=== PATIENT | male | born 2000 | race African-American/Black ===

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

== ENCOUNTER 2023-07-23 00:16 | Emergency (ER) | payer OTHER, SELFPAY ==
--- NOTE | 2023-07-23 01:26 | ER ---
Nurse's Notes [facility] Name: Vimal Ledezma Age: 22 yrs Sex: Male : 2000 Arrival Date: 07/23/2023 Time: 00:16 Bed 6 Private MD: Diagnosis: Noninfective gastroenteritis and colitis, unspecified Presentation: 07/23 00:26 Chief complaint: Patient states: fever, vomiting, overall "not feeling well" for a few as6 days. pt reports several family members are sick also. Coronavirus screen: At this time, the client does not indicate any symptoms associated with coronavirus-19. Ebola Screen: No symptoms or risks identified at this time. Initial Sepsis Screen: Does the patient meet any 2 criteria? No. Patient's initial sepsis screen is negative. Does the patient have a suspected source of infection? No. Patient's initial sepsis screen is negative. Risk Assessment: Do you want to hurt yourself or someone else? Patient reports no desire to harm self or others. Onset of symptoms was July 20, 2023. 00:26 Method Of Arrival: Ambulatory as6 00:26 Acuity: DUC 4 as6 Historical: - Allergies: 00:27 No Known Allergies; as6 - Home Meds: 00:27 None [Active]; as6 - PMHx: 00:27 None; as6 - PSHx: 00:27 None; as6 - Immunization history:: Client reports having NOT received the Covid vaccine. - Social history:: Smoking status: Reported history of juuling and/or vaping. Screenin:38 [facility] ED Fall Risk Assessment (Adult) History of falling in the last 3 months, jb4 including since admission No falls in past 3 months (0 pts) Confusion or Disorientation No (0 pts) Score/Fall Risk Level 0 - 2 = Low Risk Oriented to surroundings, Maintained a safe environment. Abuse screen: Denies threats or abuse. Nutritional screening: No deficits noted. Tuberculosis screening: No symptoms or risk factors identified. Assessment: 00:20 General: Appears comfortable, Behavior is calm, cooperative. Pain: Complains of pain in ha1 headache Pain does not radiate. Pain currently is 6 out of 10 on a pain scale. Quality of pain is described as pressure. Neuro: Level of Consciousness is awake, alert, obeys commands, Oriented to person, place, time, situation. Cardiovascular: Patient's skin is warm and dry. Respiratory: Airway is patent Respiratory effort is even, unlabored, Respiratory pattern is regular, symmetrical. 01:25 Reassessment: Patient appears in no apparent distress at this time. Patient and/or jb4 family updated on plan of care and expected duration. Pain level reassessed. Patient is alert, oriented x 3, equal unlabored respirations, skin warm/dry/pink. Vital Signs: 00:28 BP 135 / 81; Pulse 89; Resp 18 S; Temp 98.4(O); Pulse Ox 100% on R/A; Weight 63.5 kg as6 (R); Height 5 ft. 9 in. (R); Pain 3/10; 01:25 BP 134 / 75; Pulse 92; Resp 16; Pulse Ox 100% on R/A; jb4 00:28 Body Mass Index 20.67 (63.50 kg, 175.26 cm) as6 00:28 Pain Scale: Adult as6 ED Course: 00:20 Patient arrived in ED. ag3 00:20 Anita Ken PA-C is PHCP. sb4 00:20 Gregor Villarreal MD is Attending Physician. sb4 00:27 Triage completed. as6 00:29 Arm band placed on. as6 01:25 Murtaza Carter, RN is Primary Nurse. jb4 01:38 Patient has correct armband on for positive identification. Bed in low position. Call jb4 light in reach. Side rails up X 1. 01:38 No provider procedures requiring assistance completed. Patient did not have IV access jb4 during this emergency room visit. Administered Medications: No medications were administered Outcome: 01:26 Discharge ordered by . sb4 01:38 Discharged to home ambulatory, jb4 01:38 Condition: stable 01:38 Discharge instructions given to patient, Instructed on discharge instructions, follow up and referral plans. medication usage, Demonstrated understanding of instructions, follow-up care, medications, Prescriptions given X 1, 01:40 Patient left the ED. jb4 Signatures: Murtaza Carter, RN RN jb4 Shante Alejandra ag3 Zenon Torres RN RN as6 Anna Rodriguez RN RN ha1 Anita Ken PA-C PA-C sb4
--- NOTE | 2023-07-23 01:26 | EDPHYS ---
Physician Documentation [facility] Name: Vimal Ledezma Age: 22 yrs Sex: Male : 2000 Arrival Date: 07/23/2023 Time: 00:16 Bed 6 Private MD: ED Physician Gregor Villarreal HPI: 07/23 00:31 This 22 yrs old Black Male presents to ER via Ambulatory with complaints of Fever, sb4 Vomiting. 00:31 The patient reports fever, not measured (subjective), with an emergency department sb4 temperature of 98.4 degrees Fahrenheit. Onset: The symptoms/episode began/occurred 2 day(s) ago. Modifying factors: The patient has had contact with sick. Associated signs and symptoms: Pertinent positives: decreased appetite, nausea, vomiting. Severity of symptoms: At their worst the symptoms were mild in the emergency department the symptoms have improved moderately. The patient has not experienced similar symptoms in the past. The patient has not recently seen a physician. Historical: - Allergies: 00:27 No Known Allergies; as6 - Home Meds: 00:27 None [Active]; as6 - PMHx: 00:27 None; as6 - PSHx: 00:27 None; as6 - Immunization history:: Client reports having NOT received the Covid vaccine. - Social history:: Smoking status: Reported history of juuling and/or vaping. ROS: 00:31 Cardiovascular: Negative for chest pain, palpitations, and edema, Respiratory: Negative sb4 for shortness of breath, cough, wheezing, and pleuritic chest pain, 00:31 Constitutional: Positive for body aches, fever, 00:31 Abdomen/GI: Positive for nausea and vomiting, 00:31 All other systems are negative, Exam: 00:31 Constitutional: This is a well developed, well nourished patient who is awake, alert, sb4 and in no acute distress. Head/Face: Normocephalic, atraumatic. Eyes: Extra-ocular motions intact. Periorbital areas with no swelling, redness, or edema. ENT: Mucous membranes moist. Cardiovascular: Regular rate and rhythm with a normal S1 and S2. Respiratory: Lungs have equal breath sounds bilaterally, clear to auscultation and percussion. No rales, rhonchi or wheezes noted. No increased work of breathing, no retractions or nasal flaring. Abdomen/GI: Soft, non-tender, no distension. Skin: Warm, dry with normal turgor. Normal color with no rashes, no lesions, and no evidence of cellulitis. MS/ Extremity: Pulses equal, no cyanosis. Neurovascular intact. Full, normal range of motion. Neuro: Awake and alert, GCS 15, oriented to person, place, time, and situation. Motor strength 5/5 in all extremities. Sensory grossly intact. Vital Signs: 00:28 BP 135 / 81; Pulse 89; Resp 18 S; Temp 98.4(O); Pulse Ox 100% on R/A; Weight 63.5 kg as6 (R); Height 5 ft. 9 in. (R); Pain 3/10; 01:25 BP 134 / 75; Pulse 92; Resp 16; Pulse Ox 100% on R/A; jb4 00:28 Body Mass Index 20.67 (63.50 kg, 175.26 cm) as6 00:28 Pain Scale: Adult as6 MDM: 00:21 Patient medically screened. sb4 00:31 Differential diagnosis: covid, flu, viral gastroenteritis. sb4 01:25 Data reviewed: vital signs, nurses notes, lab test result(s), and as a result, I will sb4 discharge patient. Counseling: I had a detailed discussion with the patient and/or guardian regarding the historical points, exam findings, and any diagnostic results supporting the discharge/admit diagnosis, lab results, to return to the emergency department if symptoms worsen or persist or if there are any questions or concerns that arise at home. 07/23 00:25 Order name: COVID-19 SARS RT PCR sb4 07/23 00:25 Order name: Flu sb4 07/23 00:51 Order name: SARS-COV-2 RT PCR; Complete Time: :23 EDMS 07/23 00:51 Order name: Influenza Screen (A ; Complete Time: :23 EDMS 07/23 00:25 Order name: PO challenge; Complete Time: 00:39 sb4 Administered Medications: No medications were administered Disposition: 04:17 Co-signature as Attending Physician, Gregor Villarreal MD I agree with the assessment sp4 and plan of care. I reviewed the patient's care provided by the Advanced Practice Provider and agree with the diagnosis and treatment plan. Disposition Summary: 07/23/23 01:26 Discharge Ordered Notes: Location: Home sb4 Problem: an ongoing problem sb4 Symptoms: have improved sb4 Condition: Stable sb4 Diagnosis - Noninfective gastroenteritis and colitis, unspecified sb4 Followup: sb4 - With: Private Physician - When: As needed - Reason: Recheck today's complaints, Re-evaluation by your physician Discharge Instructions: - Discharge Summary Sheet sb4 - Viral Gastroenteritis, Adult sb4 Forms: - Medication Reconciliation Form sb4 - Thank You Letter sb4 - Antibiotic Education sb4 - Prescription Opioid Use sb4 - Patient Portal Instructions sb4 - Leadership Thank You Letter sb4 Prescriptions: - Zofran 4 mg Oral Tablet - take 1 tablet ORAL route every 12 hours As needed; 20 tablet; Refills: 0, sb4 Product Selection Permitted Signatures: Dispatcher [employer] Zenon Segal RN RN as6 Anita Ken, ABI ALEX sb4 Gregor Villarreal MD MD sp4
[2023-07-23 01:45] VITALS: TEMP 98.4; O2SAT 100
[2023-07-23 01:46] VITALS: BP 134/75
== END 2023-07-23 01:40 | disposition home or self-care (01) ==
LOC: ER 00:16
DX: K52.9 Noninfective gastroenteritis and colitis, unspecified (principal); F17.290 Nicotine dependence, other tobacco product, uncomplicated; Z20.822 Contact with and (suspected) exposure to COVID-19
CPT/HCPCS: 87635; 87804; 99283

== ENCOUNTER 2024-04-01 16:03 | Emergency (ER) | payer SELFPAY ==
[2024-04-01] MEDS ORDERED: HYDROCODONE/APAP 10/325 TAB ONE (17:13)
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
[2024-04-01 19:06] VITALS: O2SAT 100
[2024-04-01 19:32] VITALS: BP 121/71; TEMP 97.9
== END 2024-04-01 18:27 | disposition home or self-care (01) ==
LOC: ER 16:03
DX: S00.83XA Contusion of other part of head, initial encounter (principal); M79.662 Pain in left lower leg; V49.9XXA Car occupant (driver) (passenger) injured in unspecified traffic accident, initial encounter
CPT/HCPCS: 70450; 70486; 72125; 76377; 99283

== ENCOUNTER 2024-04-20 02:04 | Emergency (ER) | payer SELFPAY ==
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
[2024-04-20 04:37] VITALS: BP 99/64; TEMP 97.7; O2SAT 97
--- NOTE | 2024-04-20 11:12 | EKG ---
Test Date: 2024-04-20 Test Time: 02:16:23 Cart Attendant: AF MEASUREMENT RESULTS: Intervals: Rate: 75 WA: 164 QRSD: 96 QT: 346 QTc: 386 [place]: P: 69 WA: 164 QRS: 73 T: 63 INTERPRETIVE STATEMENTS: Normal sinus rhythm with sinus arrhythmia Normal ECG Compared to ECG 07/02/2015 12:27:37 Atrial premature complex(es) no longer present Early repolarization no longer present Electronically Signed On 04-20-24 11:11:42 CDT by Nayan Winters
--- NOTE | 2024-04-20 11:59 | RAD REPORT ---
EXAM DESCRIPTION: Chest Single View CLINICAL HISTORY: TRAUMA COMPARISON: None TECHNIQUE: Single AP view of the chest. FINDINGS: Lung volumes adequate. Cardiac silhouette is normal in size. No pneumothorax. No large pleural effusion. No focal consolidation. No acute bony finding. IMPRESSION: No evidence of acute cardiopulmonary disease. Electronically signed by: Orlando Palomares MD 04/20/2024 04:40 AM CDT RP Z9 Due to temporary technical issues with the PACS/Fluency reporting system, reports are being signed by the in house radiologist without review as a courtesy to ensure prompt reporting. The interpreting r adiologist is fully responsible for the content of the report.
== END 2024-04-20 04:25 | disposition home or self-care (01) ==
LOC: ER 02:04
DX: T75.1XXA Unspecified effects of drowning and nonfatal submersion, initial encounter (principal); W67.XXXA Accidental drowning and submersion while in swimming-pool, initial encounter
CPT/HCPCS: 71045; 93005; 99284